=== PATIENT | male | born 1970 | race Two or more races ===

== ENCOUNTER 2022-09-30 12:42 | Emergency (ER) | payer SELFPAY ==
[~2022-09-30] VITALS: Ht 170.2 cm; Wt 69.4 kg
[~2022-09-30 12:42] MED LIST: NOVR SUBQ
[2022-09-30 12:54] VITALS: BP 127/76; PULSE 86; RESP 16; TEMP 98; O2SAT 99
--- NOTE | 2022-09-30 13:12 | NUR ---
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 SENT HERE FROM [facility]. PT DENIES N,V,D.SAFETY MAINTAINED.
[2022-09-30] MEDS ORDERED: TETRACAINE HCL/PF 0.5% OPTH 4 ML BTL OP ONE (13:15)
[2022-09-30] MEDS ORDERED: FLUORESCEIN OPTH STRIP 1 MG OP ONE (13:15)
[2022-09-30] MEDS ORDERED: ACET-9882 PO (15:05)
== END 2022-09-30 15:34 | disposition home or self-care (01) ==
LOC: MED 12:42
DX: H43.12 Vitreous hemorrhage, left eye (principal); H40.052 Ocular hypertension, left eye; R03.0 Elevated blood-pressure reading, without diagnosis of hypertension
CPT/HCPCS: 70480; 99284